=== PATIENT | female | born 1960 | race Caucasian/White ===

== ENCOUNTER 2022-08-07 03:20 | Inpatient (IN) | payer MEDICAID ==
[~2022-08-07] VITALS: Ht 154.9 cm; Wt 95.7 kg
[2022-08-07] MEDS: METOPROLOL TARTRATE 5MG/5ML VIAL IV SCH ×2 (04:03→04:13)
[2022-08-07 04:15] LABS: BASOPHILS % 1.1 % (0.0-2.0); EOSINOPHILS % 1.4 % (0.0-5.0); HEMATOCRIT. 34.7 % (36.0-48.0); LYMPHOCYTES % 27.4 % (20.0-50.0); MEAN PLATELET VOLUME 9.5 fl (7.4-10.4); MONOCYTES % 8.9 % (2.0-8.0); NEUTROPHILS % 61.2 % (40.0-76.0); PLATELET 373 x1000/uL (130-400); RED BLOOD CELL COUNT 4.08 mill/uL (4.2-5.4); RED CELL DISTRIBUTION WIDTH 15.2 % (11.6-14.6)
[2022-08-07 04:20] LABS: CHLORIDE 110 mEq/L (98-107)
[2022-08-07] MEDS: ACETAMINOPHEN 325MG TABLET PO PRN ×2 (11:47→21:21)
[2022-08-07] MEDS: FUROSEMIDE 40MG/4ML VIAL IVP SCH ×2 (12:17→20:54)
[2022-08-07] MEDS ORDERED: DILTIAZEM HCL 5MG/ML 5ML VIAL IV PRN (13:00)
[2022-08-07] MEDS: ENOXAPARIN 100MG/ML SYR SUBCUT SCH (13:47)
[2022-08-07] MEDS: AMIODARONE HCL 200 MG TABLET PO SCH ×2 (13:51→17:00)
[2022-08-07 18:50] VITALS: BP 135/86
[2022-08-07 20:00] VITALS: BP 135/86
[2022-08-07] MEDS: DILTIAZEM HCL 60MG TABLET PO SCH (20:54)
[2022-08-07] MEDS: ONDANSETRON HCL 4MG/2ML INJ IV PRN (22:19)
[2022-08-08] VITALS (8 sets, daily range): BP systolic 94–116; BP diastolic 56–80
[2022-08-08] MEDS: ENOXAPARIN 100MG/ML SYR SUBCUT SCH ×2 (01:05→13:58)
[2022-08-08] MEDS: DILTIAZEM HCL 60MG TABLET PO SCH ×4 (05:34→17:32)
[2022-08-08] MEDS: FUROSEMIDE 40MG/4ML VIAL IVP SCH ×2 (05:35→17:32)
[2022-08-08] MEDS: ACETAMINOPHEN 325MG TABLET PO PRN ×2 (05:46→19:48)
[2022-08-08 06:39] LABS: BASOPHILS % 1.1 % (0.0-2.0); EOSINOPHILS % 1.3 % (0.0-5.0); HEMATOCRIT. 31.2 % (36.0-48.0); HEMOGLOBIN. 10.2 g/dL (12.0-16.0); LYMPHOCYTES % 20.6 % (20.0-50.0); MEAN CORPUSCULAR HEMOGLOBIN 27.4 pg (28.0-32.0); MEAN CORPUSCULAR VOLUME 83.6 fL (81.0-99.0); MONOCYTES % 11.5 % (2.0-8.0); NEUTROPHILS % 65.5 % (40.0-76.0); PLATELET 350 x1000/uL (130-400); RED BLOOD CELL COUNT 3.73 mill/uL (4.2-5.4); RED CELL DISTRIBUTION WIDTH 15.1 % (11.6-14.6)
[2022-08-08 06:51] LABS: CHLORIDE 105 mEq/L (98-107)
[2022-08-08] MEDS: AMIODARONE HCL 200 MG TABLET PO SCH ×3 (09:53→17:32)
[2022-08-08] MEDS ORDERED: POTASSIUM CHLORIDE 20MEQ TABLET SR PO SCH (12:30)
[2022-08-08] MEDS ORDERED: DILTIAZEM HCL 5MG/ML 5ML VIAL IV PRN (12:45)
[2022-08-08] MEDS ORDERED: SODIUM CHLORIDE 0.9% 1000ML BAG (SEPSIS BOLUS) IV ONE (13:15)
[2022-08-08] MEDS ORDERED: SODIUM CHLORIDE 0.9% 250 ML IV NR (13:30)
[2022-08-08] MEDS ORDERED: DIGOXIN 500MCG/2ML AMP IV SCH (13:45)
[2022-08-08 19:32] LABS: CLARITY URINE CLEAR (CLEAR); COLOR URINE YELLOW (YELLOW); KETONES URINE NEGATIVE (NEGATIVE); LEUKOCYTE ESTERASE URINE 3+ (NEGATIVE); NITRITE URINE NEGATIVE (NEGATIVE); OCCULT BLOOD URINE NEGATIVE (NEGATIVE); PH URINE 7.5 (4.5-8.0); PROTEIN URINE NEGATIVE (NEGATIVE); SPECIFIC GRAVITY URINE 1.006 (1.005-1.030)
[2022-08-08] MEDS ORDERED: HYDROCODONE/ACETAMINOPHEN 10/325MG TABLET PO PRN (21:15)
[2022-08-08] MEDS: ONDANSETRON HCL 4MG/2ML INJ IV PRN (21:26)
[2022-08-08] MEDS ORDERED: NALOXONE HCL 0.4MG/ML VIAL IV PRN (21:30)
[2022-08-09] VITALS: BP 97/60
[2022-08-09] MEDS: ENOXAPARIN 100MG/ML SYR SUBCUT SCH (01:14)
[2022-08-09 04:00] VITALS: BP 104/47
[2022-08-09] MEDS: FUROSEMIDE 40MG/4ML VIAL IVP SCH ×2 (06:00→17:42)
[2022-08-09] MEDS: DILTIAZEM HCL 60MG TABLET PO SCH ×4 (06:00→17:43)
[2022-08-09 06:41] LABS: BASOPHILS % 0.8 % (0.0-2.0); EOSINOPHILS % 0.6 % (0.0-5.0); HEMATOCRIT. 34.7 % (36.0-48.0); HEMOGLOBIN. 11.1 g/dL (12.0-16.0); LYMPHOCYTES % 20.5 % (20.0-50.0); MEAN CORPUSCULAR HEMOGLOBIN 26.9 pg (28.0-32.0); MEAN PLATELET VOLUME 9.7 fl (7.4-10.4); NEUTROPHILS % 68.1 % (40.0-76.0); PLATELET 349 x1000/uL (130-400); RED BLOOD CELL COUNT 4.14 mill/uL (4.2-5.4); RED CELL DISTRIBUTION WIDTH 14.8 % (11.6-14.6)
[2022-08-09 06:49] LABS: CHLORIDE 106 mEq/L (98-107)
[2022-08-09 08:00] VITALS: BP 103/69
[2022-08-09] MEDS: ONDANSETRON HCL 4MG/2ML INJ IV PRN (08:41)
[2022-08-09] MEDS: AMIODARONE HCL 200 MG TABLET PO SCH ×3 (08:41→17:53)
[2022-08-09 12:00] VITALS: BP 100/61
[2022-08-09] MEDS: CEFTRIAXONE 1,000 MG in DEXTROSE 5% WATER 50 ML IV SCH (14:58)
[2022-08-09] MEDS: APIXABAN 5 MG TABLET PO SCH ×2 (14:59→17:00)
[2022-08-09 16:00] VITALS: BP 139/52
[2022-08-09] MEDS ORDERED: DIGOXIN 125MCG TABLET PO SCH (18:00)
[2022-08-09 20:00] VITALS: BP 104/63
[2022-08-10] VITALS: BP 97/67
[2022-08-10 04:00] VITALS: BP 120/47
[2022-08-10] MEDS: FUROSEMIDE 40MG/4ML VIAL IVP SCH (06:19)
[2022-08-10] MEDS: DILTIAZEM HCL 60MG TABLET PO SCH ×3 (06:19→12:15)
[2022-08-10 08:00] VITALS: BP 98/79
[2022-08-10] MEDS: APIXABAN 5 MG TABLET PO SCH ×2 (08:39→17:00)
[2022-08-10] MEDS: AMIODARONE HCL 200 MG TABLET PO SCH ×2 (08:39→12:15)
[2022-08-10 12:00] VITALS: BP 116/67
[2022-08-10] MEDS: CEFTRIAXONE 1,000 MG in DEXTROSE 5% WATER 50 ML IV SCH (12:15)
[2022-08-10 16:00] VITALS: BP 101/65
[2022-08-10] MEDS ORDERED: APIX5TAB PO (16:40)
[2022-08-10] MEDS ORDERED: AMI2 MT (16:40)
[2022-08-10] MEDS ORDERED: FURO-151 MT (16:40)
[2022-08-10] MEDS ORDERED: DILT240C91 MT (16:40)
[2022-08-10] MEDS ORDERED: AMIODARONE HCL 200 MG TABLET PO SCH (17:00)
[2022-08-10 17:31] VITALS: BP 101/65
== END 2022-08-10 18:25 | disposition home or self-care (01) | DRG 201 ==
LOC: ER 03:20 → 7WST 05:55 → EDBEDREQTM 06:00 → EDBEDREQ 06:00 → ENRESERV 16:46 → 7WST 19:39
PROVIDERS: ADMIT Internal Medicine; ATTEND Internal Medicine
DX: I48.91 Unspecified atrial fibrillation (principal); J96.01 Acute respiratory failure with hypoxia; E44.1 Mild protein-calorie malnutrition; I27.20 Pulmonary hypertension, unspecified; I42.9 Cardiomyopathy, unspecified; D64.9 Anemia, unspecified; Z20.822 Contact with and (suspected) exposure to COVID-19; E78.00 Pure hypercholesterolemia, unspecified; E87.6 Hypokalemia; I34.0 Nonrheumatic mitral (valve) insufficiency; R74.01 Elevation of levels of liver transaminase levels; E66.01 Morbid (severe) obesity due to excess calories; I10 Essential (primary) hypertension; Z68.39 Body mass index [BMI] 39.0-39.9, adult
CPT/HCPCS: 36415; 71045; 80048; 80053; 81003; 83880; 84484; 85025; 87426; 93005; 93306; 99291; J0696; J1160; J1650; J1940; J2405; J3490; J7060

== ENCOUNTER 2025-06-12 19:12 | Emergency (ER) | payer MEDICAID ==
[~2025-06-12] VITALS: Ht 162.6 cm; Wt 79.0 kg
[~2025-06-12 19:12] MED LIST: AMI2 PO; AMOX1TAB16 MT; APIX5TAB PO; ATOR20TA65 PO; CETI10TA6 PO; DILT240C91 MT; FURO-151 MT; FURO20TA4 PO; METO-396 PO; TRAZ-251 PO
[2025-06-12 19:26] VITALS: O2SAT 97
[2025-06-12 19:56] LABS: CLARITY URINE CLEAR (CLEAR); COLOR URINE YELLOW (YELLOW); GLUCOSE URINE NEGATIVE (NEGATIVE); KETONES URINE TRACE (NEGATIVE); LEUKOCYTE ESTERASE URINE TRACE (NEGATIVE); NITRITE URINE NEGATIVE (NEGATIVE); OCCULT BLOOD URINE NEGATIVE (NEGATIVE); PH URINE 6.0 (4.5-8.0); PROTEIN URINE NEGATIVE (NEGATIVE); SPECIFIC GRAVITY URINE 1.022 (1.005-1.030); UROBILINOGEN URINE 1.0 E.U./dL (0.2-1.0)
[2025-06-12 20:16] LABS: BACTERIA URINE 1+; RBC URINE 0-2 /hpf (0-2); SQUAMOUS EPITHELIAL CELL URINE 1+ /lpf (RARE/1+)
[2025-06-12 20:17] LABS: BASOPHILS % 0.8 % (0.0-2.0); EOSINOPHILS % 1.2 % (0.0-5.0); HEMATOCRIT. 36.6 % (36.0-48.0); HEMOGLOBIN. 12.3 g/dL (12.0-16.0); LYMPHOCYTES % 15.8 % (20.0-50.0); MEAN PLATELET VOLUME 9.7 fl (7.4-10.4); MONOCYTES % 8.1 % (2.0-8.0); NEUTROPHILS % 74.1 % (40.0-76.0); PLATELET 251 x1000/uL (130-400); RED BLOOD CELL COUNT 3.89 mill/uL (4.2-5.4); RED CELL DISTRIBUTION WIDTH 13.4 % (11.6-14.6)
[2025-06-12 20:31] LABS: CREATININE 0.9 mg/dL (0.6-1.0); UREA NITROGEN BLOOD 16 mg/dL (9-23)
[2025-06-12 20:33] LABS: ASPARTATE AMINOTRANSFERASE 34 IU/L (<34); BILIRUBIN DIRECT 0.2 mg/dL (<=3.0); BILIRUBIN TOTAL 0.6 mg/dL (0.1-1.0); PROTEIN TOTAL 6.7 g/dL (6.0-8.3)
[2025-06-12] MEDS: HYDROCODONE/ACETAMINOPHEN 5/325MG TABLET PO ONE (20:49)
[2025-06-12] MEDS: ONDANSETRON 4MG ODT PO ONE (20:49)
[2025-06-13] MEDS ORDERED: CEPH500C2 MT (00:12)
[2025-06-13] MEDS ORDERED: HYDR-4001 MT (00:12)
[2025-06-13 00:30] VITALS: BP 160/86; PULSE 85; RESP 18; TEMP 36.7; O2SAT 97
== END 2025-06-13 00:38 | disposition home or self-care (01) ==
LOC: ER 19:12
DX: K44.9 Diaphragmatic hernia without obstruction or gangrene (principal); K80.50 Calculus of bile duct without cholangitis or cholecystitis without obstruction; I10 Essential (primary) hypertension; E11.9 Type 2 diabetes mellitus without complications; E78.00 Pure hypercholesterolemia, unspecified; Z90.710 Acquired absence of both cervix and uterus; Z79.899 Other long term (current) drug therapy
CPT/HCPCS: 99284; 74176; 76705; 80076; 80048; 81003; 83690; 85025; 87086; 36415; Q0162